=== PATIENT | male | born 1975 | race Caucasian/White ===

== ENCOUNTER 2017-04-13 08:03 | Day surgery (SDC) | payer MEDICARE, OTHER ==
[2017-04-13 08:34] VITALS: BP 128/74; PULSE 77; RESP 19; TEMP 97.7; O2SAT 100
[2017-04-13] MEDS ORDERED: Propofol 10 mg/ml Inj (20 ML) ONE (09:21)
[2017-04-13] MEDS ORDERED: Lactated Ringer's 1,000 ML IV ONE (09:22)
[2017-04-13] MEDS ORDERED: Lidocaine 2% MPF (5 ml) Inj ONE (09:22)
== END 2017-04-13 13:41 | disposition home or self-care (01) ==
LOC: H.ENDO 08:03
PROVIDERS: ATTEND Internal Medicine Gastroenterology
DX: K52.9 Noninfective gastroenteritis and colitis, unspecified (principal); Z21 Asymptomatic human immunodeficiency virus [HIV] infection status; F32.9 Major depressive disorder, single episode, unspecified; K64.8 Other hemorrhoids; K63.3 Ulcer of intestine; K31.89 Other diseases of stomach and duodenum; R19.7 Diarrhea, unspecified
CPT/HCPCS: 43239; 45380; 88305; J2704; J7120